=== PATIENT | male | born 1965 | race Caucasian/White ===

== ENCOUNTER 2024-08-28 06:25 | Outpatient (REF) | payer OTHER, SELFPAY ==
--- OUTSIDE RECORDS SUMMARY | 2024-08-28 06:31 | XMS_ITS | Clinical Summary ---
Author Organization [facility] Address [address] [place] [address] Care Team Providers Care Dental Receptionist Name Role Phone Unavailable Primary Care Provider Unavailabl e Allergies No known active allergies Medications Medication Sig Dispensed Refills Start Date End Date Status amLODIPine (NORVASC) tablet 10 mg Take 10 mg by mouth. 0 02/04/2021 Acti ve metoprolol succinate (TOPROL-XL) 24 hr tablet 100 mg 0 06/11/2021 Active losartan (COZAAR) 100 MG tablet 0 06/11/2021 Active simvastatin (ZOCOR) tablet 20 mg 0 07/16/2021 Active meloxicam (MOBIC) 15 MG tablet Take one tab daily as needed for our joint pain joint pain. Do not combine with any other nonsteroidal anti-inflammatories. 30 tablet 2 08/07/2021 Active ergocalciferol (VITAMIN D2) capsule 11705 units Take 10,000 Units by mouth. 0 Active Active Problems Problem Noted Date Diagnosed Date Arthritis of knee, right 08/07/2021 Trochanteric bursitis, left hip 04/03/2021 Social History Tobacco Use Types Packs/Day Years Used Date Smoking Tobacco: Every Day Cigarettes 1 Started: 1981 Cigars Smokeless Tobacco: Current Chew Alcohol Use Standard Drinks/Week Comments Yes 1 (1 standard drink = 0.6 oz pur e alcohol) Sex and Gender Information Value Date Recorded Sex Assigned at Not on file Gender Identity Not on file Sexual Orientation Not on file Job Start Date Occupation Industry Not on file Not on file Not on file Last Filed Vital Signs Vital Sign Reading Time Taken Comments Blood Pressure - - Pulse - - Temperature - - Respiratory Rate - - Oxygen Saturation - - Inhaled Oxygen Concentration - - Weight 117.9 kg (260 lb) 08/14/2021 8:33 AM EST Height 188 cm (6' 2 ) 08/14/2021 8:33 AM EST Body Mass Index 33.38 08/14/2021 8:33 AM EST Plan of Treatment Health Maintenance Due Date Last Done Comments Hepatitis B Vaccines (1 of 3 - 3-dose series) 1965 Hepatitis C Screening 1965 COVID-19 Vaccine (#1) 1965 Pneumococcal Vaccine (1 of 2 - PCV) 1971 Depression Screening 1977 BMI Counseling 1983 Preventative Health Evaluation 1983 Tobacco Cessation Counseling 1983 DTap / Tdap / Td (1 - Tdap) 1984 Colon Cancer Screening (Colonoscopy) 2010 Shingrix-Zoster Vaccine (1 of 2) 2015 Influenza Vaccine (#1) 2024 RSV Ped < 20 months Aged Out No longe r eligible based on patient's age to complete this topic
--- OUTSIDE RECORDS SUMMARY | 2024-08-28 06:31 | XMS_ITS | Clinical Summary ---
Author Organization [facility] Address [address] [place] [address] Phone Care Team Providers Care High School Librarian Name Role Phone Unavailable Primary Care Provider Unavailabl e Allergies No known active allergies Medications ergocalciferol 1.25 MG (41527 UT) capsule Take 10,000 Units by mouth 1 (one) time per week Active amLODIPine (NORVASC) 10 MG tablet Take 1 tablet (10 mg total) by mouth 1 (one) time each day 90 tablet 3 12/21/2023 Active losartan (COZAAR) 100 MG tablet Take 1 tablet (100 mg total) by mouth 1 (one) time each day 90 tablet 3 12/21/2023 Active metoprolol succinate XL (TOPROL-XL) 100 MG 24 hr tablet Take 1 tablet (100 mg total) by mouth 1 (one) time each day Do not crush or chew. 90 tablet 3 12/21/2023 Active simvastatin (ZOCOR) 20 MG tablet Take 1 tablet (20 mg total) by mouth 1 (one) time each day 90 tablet 3 12/21/2023 Active Active Problems Problem Noted Date Diagnosed Date Osteoarthritis, not otherwise specified 08/25/19 24 Localized edema 08/05/2021 Obstructive sleep apnea syndrome 02/02/2021 Impaired fasting glucose 02/02/2021 Dyslipidemia 01/17/2021 Chronic back pain 01/17/2021 Hypertension 01/17/2021 Liver function tests outside reference range 08/2020 Obesity 01/17/2021 Resolved Problems Problem Noted Date Diagnosed Date Resolved Date Arthritis of right knee 08/07/2021 02/0 01/2024 Trochanteric bursitis of left hip 04/03/2021 08/25/2023 Hyperparathyroidism due to r enal insufficiency 01/17/2021 08/05/2021 Family History Medical History Relation Comments Heart disease Father Cancer Mother pancreatic Relation Status Comments Father Mother Social History Tobacco Use Types Packs/Day Years Used Date Smoking Tobacco: Never Smokeless Tobacco: Never Alcohol Use Standard Drinks/Week Comments Yes 0 (1 standard drink = 0.6 oz pure alcohol) Alcoholic Drinks/day: Occasional social drink Sex and Gender Information Value Date Recorded Sex Assigned at Not on file Legal Sex Male 4:59 PM EST Gender Identity Not on file Sexual Orientation Not on file Last Filed Vital Signs Vital Sign Reading Time Taken Comments Blood Pressure 133/73 01/03/2024 7:52 AM EDT Pulse 68 01/03/2024 7:52 AM EDT Temperature - - Respiratory Rate - - Oxygen Saturation 97% 01/03/2024 7:52 AM EDT Inhaled Oxygen Concentration - - Weight 109 kg (241 lb) 01/03/2024 7:52 AM EDT Height 185.4 cm (6' 1 ) 01/03/2024 7:52 AM EDT Body Mass Index 31.8 01/03/2024 7:52 AM EDT Plan of Treatment Upcoming Encounters Date Type Department Care Team (Late st Contact Info) Description 08/29/2024 9:40 AM EST Office Visit [facility] [address] [id number] Diaz Garcia MD [address] [id number] Health Maintenance Due Date Last Done Comments Pneumococcal Vaccine: Pediat rics (0 to 5 Years) and At-Risk Patients (6 to 64 Years) (1 of 2 - PCV) 1971 Hepatitis B Vaccine (1 of 3 - 19+ 3-dose series) 04/26 Colorectal Cancer Screening: Annual FOBT 2014 Colorectal Cancer Screening: Colonoscopy 2014 Colorectal Cancer Screening: Sigmoidoscopy 2014 Influenza Vaccine (#1) 2024 Insurance [facility]
[2024-08-28 09:58] LABS: MANUAL DIFF FLAG NO
[2024-08-28 10:05] LABS: Basophils Absolute Auto 0.1 X10*3/uL (0.0-0.2); Basophils Percent Auto 1.2 % (0-2); Eosinophils Absolute Auto 0.3 X10*3/uL (0.0-0.4); Hematocrit 41.8 % (42.0-52.0); Hemoglobin 14.1 g/dl (14.0-18.0); Imm Gran Abs Auto 0.04 X10*3/uL (0.00-0.03); Imm Gran Pct Auto 0.8 % (0.0-0.4); Lymphocytes Absolute Auto 1.6 X10*3/uL (1.2-4.9); Lymphocytes Percent Auto 31.5 % (20-40); Mean Corpuscular HGB Conc 33.7 g/dl (31.0-36.0); Mean Corpuscular Hemoglobin 29.9 pg (27.0-33.0); Mean Corpuscular Volume 88.6 fL (80.0-98.0); Mean Platelet Volume 10.6 fL (9.4-12.4); Monocytes Absolute Auto 0.5 X10*3/uL (0.1-1.2); Monocytes Percent Auto 10.4 % (2-11); Neutrophils Absolute Auto 2.5 x10*3/uL (2.0-8.3); Neutrophils Percent Auto 50.1 % (45-73); Platelet Count 245 X10*3/uL (160-400); Red Blood Count 4.72 X10*6/uL (4.60-5.80); Red Cell Distribution Width 13.2 % (11.0-16.0)
[2024-08-28 10:34] LABS: Alanine Aminotransferase 28 U/L (0-40); Albumin Level 4.1 g/dL (3.5-5.0); Anion Gap 11 (12-20); Aspartate Amino Transferase 29 U/L (5-37); Bilirubin Total 0.4 mg/dL (0.0-1.0); Blood Urea Nitrogen 20 mg/dL (9-16); Calcium 8.9 mg/dL (8.4-10.2); Carbon Dioxide 24 mmol/L (22-29); Chloride 113 mmol/L (96-108); Estimated Glomerular Filt Rate > 60; Glucose Random 99 mg/dL (60-115); Magnesium 2.1 mg/dL (1.6-2.6); Phosphorus 3.6 mg/dL (2.7-4.5); Potassium 4.3 mmol/L (3.3-5.1); Protein/Creatinine Ratio, Ur 0.05 (<0.2); Sodium 144 mmol/L (135-145); Total Protein Urine Random 13 mg/dL (<12); Uric Acid 5.4 mg/dL (3.4-7.0)
[2024-08-28 10:40] LABS: Parathyroid Hormone Intact 71.9 pg/mL (8.7-77.1)
[2024-08-28 10:51] LABS: Alkaline Phosphatase 72 U/L (39-117); Vitamin D 25-OH Total 52.7 ng/mL (>30)
== END 2024-08-28 06:26 | disposition home or self-care (01) ==
LOC: HO.HMGCLDS 06:25
PROVIDERS: Visit Provider Internal Medicine Nephrology
DX: I10 Essential (primary) hypertension (principal); R60.0 Localized edema; G47.33 Obstructive sleep apnea (adult) (pediatric); E78.5 Hyperlipidemia, unspecified
CPT/HCPCS: 36415; 80053; 82306; 82570; 83735; 83970; 84100; 84156; 84550; 85025